=== PATIENT | female | born 1965 | race Hispanic/Latino ===

== ENCOUNTER 2017-06-11 22:12 | Emergency (ER) | payer BC ==
[~2017-06-11] VITALS: Ht 149.9 cm; Wt 80.1 kg
--- OUTSIDE RECORDS SUMMARY | 2017-06-11 22:14 | XMS REPORT ---
Author Author [facility] Address Unknown Phone Unavailable Care Team Providers Care Insurance Healthcare Representative Name Role Phone Unavailable Unavailable Problems This patient has no known problems. Allergies, Adverse Reactions, Alerts This patient has no known allergies or adverse reactions. Medications This patient has no known medications. Results Test Description Test Time Test Comments Text Results Atomic Results Result Comments U/SPELVIS WITH ENDOVAG STUDY 2017-04-13 16:53:00 Reason for Exam:->r10.2 Location->[facility] FINAL REPORT Pelvic ultrasound, 04/13/2017 HISTORY: R10.2 COMPARISON: 03/04/2016 FINDINGS: Transabdominal and transvaginal grayscale, color Doppler and spectral Doppler imaging of the pelvis was performed. The uterus is absent. The right ovary is unremarkable measuring 2.3 x 1.9 x 1.1 cm. Normal blood flow identified and spectral Doppler. The apparent left ovary is not well-visualized measuring 3.9 x 3.4 x 2.5 cm. Doppler interrogation is suboptimal. There is a possible heterogenous left adnexal mass with internal blood flow measuring 4.6 x 3.9 x 2.3 cm. IMPRESSION:1. Poor visualization of the left ovary and possible left adnexal mass.2. Normal right ovary.3. Hysterectomy. Recommend further characterization with contrast-enhanced pelvic MRI. Signed: Adia Hannah MDReport Verified Date/Time: 04/13/2017 16:53:30 Reading Location: [address] Radiology Reading Room , DIGITAL, MAMMO, SCREENING, BILATERAL INCLUDING CAD 2017-04-13 13:03:00 Reason for Exam:->N64.4 #[id number] - MM, DIGITAL, MAMMO, SCREENING , BILATERAL INCLUDING CADBILATERAL DIGITAL SCREENING MAMMOGRAM WITH CAD: 2017Comparison is made to exam dated: 03/07/2016 mammogram - [facility]. There are scattered fibroglandular elements in both breasts that could obscure a lesion on mammography. Current study was also evaluated with a Computer Aided Detection (CAD) system. No significant masses, calcifications, or other findings are seen in either breast. IMPRESSION: NEGATIVEThere is no mammographic evidence of malignancy. A 1 year screening mammogram is recommended. Rupali Roca M.D. pth/ penrad:04/13/2017 13:03:11 Normal Exam Mammogram BI-RADS: 1 Negative G0202
[2017-06-11] MEDS ORDERED: PREDNISONE 20 MG TAB PO ONE (22:45)
[2017-06-11] MEDS ORDERED: KETOROLAC TROMETHAMINE 60 MG/2 ML VIAL IM ONE (22:45)
[2017-06-11 23:19] VITALS: BP 151/68
== END 2017-06-11 23:30 | disposition home or self-care (01) ==
LOC: FSED 22:12
DX: M25.511 Pain in right shoulder (principal); M75.51 Bursitis of right shoulder; M75.91 Shoulder lesion, unspecified, right shoulder
CPT/HCPCS: 73030; 99283; J1885

== ENCOUNTER 2017-06-20 20:15 | Emergency (ER) | payer BC ==
--- OUTSIDE RECORDS SUMMARY | 2017-06-20 20:17 | XMS REPORT | Continuity of Care Document ---
Author Author [facility] Organization [facility] Address [address] [place] [address] Phone Unavailable Care Team Providers Care Lawn Mower Mechanic Name Role Phone NO, PCP PCP Unavailable Advance Directives No advance directive information available. Problems No problem information available. Medications No medication information available. Social History Smoking Status Start Date Stop Date Never Smoker Hospital Discharge Instructions No hospital discharge instruction information available. Plan of Care Discharge Date 06/11/17 11:30pm Disposition HOME, SELF-CARE Condition at Discharge Stable Instructions/Education Provided Bursitis - Shoulder Forms Provided Work/School Excuse Prescriptions See Medication Section Additional Instructions/Education Apply ice to the area for 15 - 20 minutes , 3x/day, to help decrease inflammation. Take prescription medications, as prescribed. Follow-up with your primary care physician, if symptoms persist or worsen. Functional Status No functional status information available. Allergies, Adverse Reactions, Alerts No known allergies. Immunizations No immunization information available. Vital Signs Acute Vital Signs Vital Response Date/Time Temperature (Fahrenheit) 98.2 degrees F (97.6 - 99.5) 06/11/2017 11:19pm Pulse Pulse Rate (adult) 65 bpm (60 - 90) 06/11/2017 11:19pm Respiratory Rate 20 bpm (12 - 24) 06/11/2017 11:19pm Blood Pressure 151/68 mm Hg 06/11/2017 11:19pm Height 4 ft 11 in 06/11/2017 10:40pm Weight 176.56 lb 06/11/2017 10:40pm Body Mass Index 35.7 kg/m^2 06/11/2017 10:40pm Results No relevant diagnostic test, laboratory data and/or discharge summary information available. Procedures No procedure information available. Encounters Encounter Location Arrival/Admit Date Discharge/Depart Date Attending Provider Departed Emergency Room [facility] 06/11/17 10:12pm 06/11 11:30pm MARGARITA SCOTT MD
--- OUTSIDE RECORDS SUMMARY | 2017-06-20 20:17 | XMS REPORT | Clinical Summary ---
Author Author [facility] Address Unknown Phone Unavailable Care Team Providers Care Metal Can Inspector Name Role Phone PCP Unavailable Allergies Not on File Current Medications Not on file Active Problems Not on file Encounters Date Type Specialty Care Team Description 04/13/2017 [facility] Grant Zaidi MD Breast pain Encounter 04/13/2017 [facility] Radiology Grant Zaidi MD Pelvic pain in female Encounter 02/21/2017 Outside Orders Grant Zaidi MD Pelvic pain in female (Primary Dx);Breast pain after 06/19/2016 Social History Tobacco Use Types Packs/Day Years Used Date Never Assessed Sex Assigned at Date Recorded Not on file Last Filed Vital Signs Not on file Plan of Treatment Not on file Results * US Pelvis with Endovag study (04/13/2017 12:05 PM) Specimen Performing Laboratory [facility] Narrative FINAL REPORT Pelvic ultrasound, 04/13/2017 HISTORY: R10.2 COMPARISON: 03/04/2016 FINDINGS: Transabdominal and transvaginal grayscale, color Doppler and spectral Doppler imaging of the pelvis was performed. The uterus is absent. The right ovary is unremarkable measuring 2.3 x 1.9 x 1.1 cm. Normal blood flow identified and spectral Doppler. The apparent left ovary is not well-visualized measuring 3.9 x 3.4 x 2.5 cm.Doppler interrogation is suboptimal. There is a possible heterogenous left adnexal mass with internal blood flow measuring 4.6 x 3.9 x 2.3 cm. IMPRESSION: 1. Poor visualization of the left ovary and possible left adnexal mass. 2. Normal right ovary. 3. Hysterectomy. Recommend further characterization with contrast-enhanced pelvic MRI. Signed: Adia Hannah MD Report Verified Date/Time:04/13/2017 16:53:30 Reading Location: [address] Radiology Reading Room Procedure Note Interface, External Ris In - 04/13/2017 4:55 PM CONSTRUCTION TEACHER FINAL REPORT Pelvic ultrasound, 04/13/2017 HISTORY: R10.2 [...] measuring 4.6 x 3.9 x 2.3 cm. IMPRESSION: 1. Poor visualization of the left ovary and possible left adnexal mass. 2. Normal right ovary. 3. Hysterectomy. Recommend further characterization with contrast-enhanced pelvic MRI. Signed: Adia Hannah MD Report Verified Date/Time: 04/13/2017 16:53:30 Reading Location: [address] Radiology Reading Room * Mammogram Screening Bilateral (04/13/2017 12:03 PM) Specimen Performing Laboratory [facility] Narrative #[id number] - MM, DIGITAL, MAMMO, SCREENING, BILATERAL INCLUDING CAD BILATERAL DIGITAL SCREENING MAMMOGRAM WITH CAD: 04/13/2017 Comparison is made to exam dated:03/07/2016 mammogram - [facility]. There are scattered fibroglandular elements in both breasts that could obscure a lesion on mammography. Current study was also evaluated with a Computer Aided Detection (CAD) system. No significant masses, calcifications, or other findings are seen in either breast. IMPRESSION: NEGATIVE There is no mammographic evidence of malignancy. A 1 year screening mammogram is recommended. Rupali Roca M.D. pth/penrad:04/13/2017 13:03:11 Normal Exam Mammogram BI-RADS: 1 Negative G0202 Procedure Note Interface, External Ris In - 04/13/2017 1:59 PM CONSTRUCTION TEACHER #[id number] - MM, DIGITAL, MAMMO, SCREENING, BILATERAL INCLUDING CAD BILATERAL DIGITAL SCREENING MAMMOGRAM WITH CAD: 04/13/2017 Comparison is made to exam dated: 03/07/2016 mammogram - [facility]. There are scattered fibroglandular elements in both breasts that could obscure a lesion on mammography. Current study was also evaluated with a Computer Aided Detection (CAD) system. No significant masses, calcifications, or other findings are seen in either breast. IMPRESSION: NEGATIVE There is no mammographic evidence of malignancy. A 1 year screening mammogram is recommended. Rupali Roca M.D. pth/penrad:04/13/2017 13:03:11 Normal Exam Mammogram BI-RADS: 1 Negative G0202 after 06/19/2016
== END 2017-06-20 20:46 | disposition short-term general hospital (02) ==
LOC: ER 20:15
DX: R21 Rash and other nonspecific skin eruption (principal)

== ENCOUNTER → 2017-06-20 | Outpatient (CLI) | payer BC ==
[~2017-06-20] MED LIST: IOPAMIDOL 370 MG/ML 200 ML INFUS..BTL INJ ONE; SODIUM CHLORIDE 0.9% 50ML 50 ML ONE
--- NOTE | 2017-06-20 20:03 | Diagnostic Imaging Report ---
ADDENDUM #1 Addendum: The ordering physician for this exam is Dr. Grant Zaidi. Signed by: Dr. Rome Caraballo M.D. on 06/21/2017 3:12 PM ORIGINAL REPORT EXAMINATION: CT of the abdomen and pelvis with contrast. TECHNIQUE: Spiral CT images of the abdomen and pelvis were performed from the lung bases to the lesser trochanters after the intravenous administration of 100 cc of Omnipaque 370 and the oral administration of 100. Coronal and sagittal reformatted images were obtained. COMPARISON: No exam is available for comparison.. CLINICAL HISTORY:Abnormal ultrasound in March 2017, adnexal mass DISCUSSION: ABDOMEN/PELVIS: LOWER THORAX:Unremarkable. HEPATOBILIARY: Diffuse hepatic steatosis. No focal lesions. No intra or extrahepatic biliary ductal dilation. GALLBLADDER: Cholecystectomy clips. SPLEEN: No splenomegaly. PANCREAS: No focal masses or ductal dilatation. ADRENALS: No adrenal nodules. KIDNEYS/URETERS: No hydronephrosis, stones, or solid mass lesions. PELVIC ORGANS/BLADDER: Bladder is unremarkable. Uterus is not visualized. 3.6 x 2.5 cm fluid density lesion in the right ovary (series 2, image 64). The right ovary is unremarkable. PERITONEUM/RETROPERITONEUM: No free air or fluid. LYMPH NODES: No intra-abdominal, retroperitoneal, pelvic or inguinal lymphadenopathy. VESSELS: The celiac trunk,superior and inferior mesenteric and bilateral renal arteries are patent The portal, superior mesenteric and splenic veins are patent. GI TRACT: No bowel dilation or evidence of obstruction. Appendix is well identified and normal in caliber. No pericolonic inflammatory changes. BONES AND SOFT TISSUE: No aggressive lytic lesions. No soft tissue abnormalities. IMPRESSION: 1. Indeterminate 3.6 cm fluid density lesion in the right ovary. This may represent a follicular cyst. The indicated exam is transvaginal pelvic ultrasound for evaluation of this lesion. 2. Diffuse hepatic steatosis. Signed by: Dr. Rome Caraballo M.D. on 06/20/2017 7:59 PM
== END ==
LOC: CT 18:17
PROVIDERS: ATTEND Family Medicine
DX: R19.09 Other intra-abdominal and pelvic swelling, mass and lump (principal); K76.0 Fatty (change of) liver, not elsewhere classified
CPT/HCPCS: 74177; Q9967